=== PATIENT | male | born 1970 | race Caucasian/White ===

== ENCOUNTER 2017-12-19 14:19 | Emergency (ER) | payer MEDICAID ==
[~2017-12-19] VITALS: Ht 165.1 cm; Wt 88.6 kg
[~2017-12-19 14:19] MED LIST: BUPR100T4 PO
[2017-12-19] MEDS ORDERED: QUET25TA PO (14:28)
[2017-12-19] MEDS ORDERED: BUPR75 PO (14:28)
[2017-12-19] MEDS ORDERED: ATOM40 PO (14:28)
[2017-12-19 14:58] LABS: BASOPHILS % (AUTO) 0.8 % (0.0-2.0); EOSINOPHILS % (AUTO) 1.4 % (1.0-6.0); HEMATOCRIT 48.3 % (41-53); HEMOGLOBIN 16.7 g/dL (13.5-17.5); LYMPHOCYTES # (AUTO) 2.4 K/uL (1.0-4.8); LYMPHOCYTES % (AUTO) 27.9 % (22.0-44.0); MEAN CORPUSCULAR HEMOGLOBIN 30.8 pg (26.0-34.0); MEAN CORPUSCULAR HGB CONC 34.7 G/dL (31.0-37.0); MEAN CORPUSCULAR VOLUME 89 fL (80-100); MONOCYTES # (AUTO) 0.9 K/uL (0.1-1.0); MONOCYTES % (AUTO) 10.7 % (2.0-9.0); NEUTROPHILS # (AUTO) 5.2 K/uL (1.8-7.7); NEUTROPHILS % (AUTO) 59.2 % (40.0-70.0); PLATELET COUNT (AUTO) 264 K/uL (150-450); RED BLOOD CELL COUNT(AUTO) 5.43 MIL/uL (4.50-5.90)
[2017-12-19 15:08] LABS: ANION GAP 11 mmol/L (8-16); CALCIUM, TOTAL 9.3 mg/dL (8.8-10.5); CARBON DIOXIDE 25 mmol/L (22-29); CHLORIDE 99 mmol/L (98-107); CREATININE 1.02 mg/dL (0.60-1.30); GLOMERULAR FILTR. RATE CALC > 60 mL/min (>60); GLUCOSE,RANDOM 117 mg/dL (70-110); POTASSIUM 3.7 mmol/L (3.5-5.1); SODIUM SERUM 135 mmol/L (136-145); UREA NITROGEN, BLOOD 13 mg/dL (7-18)
[2017-12-19 15:14] LABS: ALANINE AMINOTRANSFERASE 64 U/L (12-78); ALBUMIN 3.9 g/dL (3.4-5.0); ALKALINE PHOSPHATASE 93 U/L (46-116); ASPARTATE AMINOTRANSFERASE 45 U/L (15-37); BILIRUBIN,TOTAL 0.4 mg/dL (0.1-1.0); TOTAL PROTEIN, SERUM 8.1 g/dL (6.4-8.2)
[2017-12-19] MEDS ORDERED: KETOROLAC TROMETHAMINE 30 MG/ML VIAL IVP ONE (16:30)
[2017-12-19 18:05] VITALS: BP 128/79
== END 2017-12-19 18:21 | disposition home or self-care (01) ==
LOC: EMS 14:19
DX: B34.9 Viral infection, unspecified (principal); R53.83 Other fatigue; R53.81 Other malaise; F17.210 Nicotine dependence, cigarettes, uncomplicated; Z88.0 Allergy status to penicillin; Z79.899 Other long term (current) drug therapy; Z90.49 Acquired absence of other specified parts of digestive tract
CPT/HCPCS: 36415; 71045; 80053; 84484; 85025; 93005; 96374; 99285; J1885

== ENCOUNTER 2021-12-01 14:19 | Emergency (ER) | payer MEDICAID, OTHER ==
[~2021-12-01] VITALS: Ht 165.1 cm; Wt 90.0 kg
[~2021-12-01 14:19] MED LIST changes: +ATOM40CA9 PO; +BUPR-344 PO; -BUPR100T4 PO; +QUET25TA PO
[2021-12-01 16:09] LABS: COVID AG,FIA SOURCE NASOPHARYNGEAL
[2021-12-01 16:30] LABS: INFLUENZA TYPE A NEGATIVE FOR TYPE A (NEGATIVE); INFLUENZA TYPE B NEGATIVE FOR TYPE B (NEGATIVE)
[2021-12-01 16:39] LABS: RAPID GROUP A STREP NEGATIVE (NEGATIVE)
[2021-12-01 17:57] VITALS: BP 134/88
[2021-12-01] MEDS ORDERED: AZIT250T9 PO (19:34)
== END 2021-12-01 23:13 | disposition home or self-care (01) ==
LOC: EMS 14:21
DX: U07.1 COVID-19 (principal); H66.93 Otitis media, unspecified, bilateral; F17.210 Nicotine dependence, cigarettes, uncomplicated; Z88.0 Allergy status to penicillin; Z79.899 Other long term (current) drug therapy
CPT/HCPCS: 87430; 87804; 99283